=== PATIENT | female | born 1965 | race American Indian/Alaskan Native ===

== ENCOUNTER 2016-07-13 19:32 | Emergency (ER) | payer SELFPAY ==
[2016-07-13 20:14] VITALS: BP 160/87
--- NOTE | 2016-07-13 21:12 | Emergency Department Report ---
Chief Complaint: Chest Pain Stated Complaint: CHEST PAIN Time Seen by Provider: 07/13/16 21:09 - HPI History of Present Illness: patient presents with left side chest pain, dizziness that has resolved, denies n/v/d, chills, fever. Also admits to neck pain that is chronic but is now radiating down bilateral arms along with tingling. - ROS Review of Systems: All other systems unremarkable except documentation in HPI - Exam Vital Signs: Vital Signs 07/13/16 20:08 Temperature 98 F Pulse Rate 72 Respiratory 18 Rate Blood Pressure 160/87 O2 Sat by Pulse 98 Oximetry Physical Exam: Gen: Female no apparent distress noted, ambulatory. Cardiovascular: Heart sounds present S1-S2, no murmur, gallop, edema or ectopy noted, 2+ pulses upper and lower extremities Respiratory: Chest symmetry with respirations, lungs clear to auscultate upper and lower lobes, respirations even and unlabored, no rales, rhonchi, crackles noted. Psych: AxOx3, answers questions appropriately, mood full range, affect normal, normal speech and tone. MSE screening note: Focused history and physical exam performed. Due to findings the following was ordered: seen by provider, laboratory and radiology studies ordered, and to go to main ED to be seen by physician ED Medical Decision Making - Medical Decision Making seen by provider, laboratory and radiology studies ordered, and to go to main ED to be seen by physician ED Disposition for MSE Condition: Stable
[2016-07-13 21:53] LABS: Basophils % (Auto) 0.7 % (0.0-1.8); Eosinophils % (Auto) 2.6 % (0.0-4.3); Hematocrit 38.2 % (30.3-42.9); Hemoglobin 12.9 gm/dl (10.1-14.3); Mean Corpuscular HGB Conc 34 % (30-34); Mean Corpuscular Hemoglobin 32 pg (28-32); Mean Corpuscular Volume 93 fl (79-97); Platelet Count 235 K/mm3 (140-440); Red Blood Count 4.09 M/mm3 (3.65-5.03); Red Cell Distribution Width 12.9 % (13.2-15.2); White Blood Count 8.7 K/mm3 (4.5-11.0)
[2016-07-13 22:12] LABS: Creatine Kinase MB 3.6 ng/mL (0.0-4.0)
[2016-07-13 22:13] LABS: Bilirubin,Urine NEG (Negative); Blood,Urine NEG (Negative); Ketones,Urine TR mg/dL (Negative); Leukocyte Esterase,Urine NEG (Negative); Mucus,Urine 1+ /HPF; Nitrite,Urine NEG (Negative); Protein,Urine <15 mg/dL mg/dL (Negative); Urobilinogen,Urine < 2.0 mg/dL (<2.0); WBC,Urine < 1.0 /HPF (0.0-6.0)
[2016-07-13 22:13] LABS: Alanine Aminotransferase 20 units/L (7-56); Albumin 4.3 g/dL (3.9-5); Albumin/Globulin Ratio 1.8 %; Alkaline Phosphatase 69 units/L (35-129); Anion Gap 18 mmol/L; BUN/Creatinine Ratio 13.75; Bilirubin,Total < 0.2 mg/dL (0.1-1.2); Blood Urea Nitrogen 11 mg/dL (7-17); Calcium 9.2 mg/dL (8.4-10.2); Carbon Dioxide 29 mmol/L (22-30); Chloride 100.6 mmol/L (98-107); Creatine Kinase 179 units/L (30-135); Glucose 98 mg/dL (65-100); Potassium 4.1 mmol/L (3.6-5.0); Sodium 143 mmol/L (137-145); Total Protein 6.7 g/dL (6.3-8.2)
--- NOTE | 2016-07-15 14:58 | ED Elopement Review ---
ED Pt Elopement review - Results review Lab results: Laboratory Tests 07/13/16 07/13/16 07/13/16 21:34 21:36 21:36 WBC 8.7 RBC 4.09 Hgb 12.9 Hct 38.2 MCV 93 MCH 32 MCHC 34 RDW 12.9 L Plt Count 235 Lymph % (Auto) 34.6 [place] % (Auto) 8.1 H Eos % (Auto) 2.6 Baso % (Auto) 0.7 Lymph # 3.0 [place] # 0.7 Eos # 0.2 Baso # 0.1 Seg Neutrophils % 54.0 Seg Neutrophils # 4.7 Sodium 143 Potassium 4.1 Chloride 100.6 Carbon Dioxide 29 Anion Gap 18 BUN 11 Creatinine 0.8 Estimated GFR > 60 BUN/Creatinine Ratio 13.75 Glucose 98 Calcium 9.2 Total Bilirubin < 0.2 AST 18 ALT 20 Alkaline Phosphatase 69 Total Creatine Kinase 179 H CK-MB (CK-2) 3.6 CK-MB (CK-2) Rel Index 2.0 Troponin T < 0.010 Total Protein 6.7 Albumin 4.3 Albumin/Globulin Ratio 1.8 Urine Color Yellow Urine Turbidity Clear Urine pH 5.0 Ur Specific [place] 1.027 Urine Protein <15 mg/dl Urine Glucose (UA) Neg Urine Ketones Tr Urine Blood Neg Urine Nitrite Neg Urine Bilirubin Neg Urine Urobilinogen < 2.0 Ur Leukocyte Esterase Neg Urine WBC (Auto) < 1.0 Urine RBC (Auto) 2.0 U Epithel Cells (Auto) 3.0 Calcium Oxalate Crystal 1+ Urine Mucus 1+ - Call Back decision Pt Call Back Decision: No action required
== END 2016-07-13 21:40 | disposition left against medical advice (07) ==
LOC: ED 19:32
DX: R07.9 Chest pain, unspecified (principal); Z53.21 Procedure and treatment not carried out due to patient leaving prior to being seen by health care provider
CPT/HCPCS: 36415; 80053; 81001; 82550; 82553; 84484; 85025; 93005; 93010

== ENCOUNTER 2016-07-15 15:08 | Emergency (ER) | payer MEDICARE, OTHER ==
[2016-07-15 16:52] LABS: Basophils % (Auto) 0.5 % (0.0-1.8); Eosinophils % (Auto) 2.3 % (0.0-4.3); Hemoglobin 12.6 gm/dl (10.1-14.3); Mean Corpuscular HGB Conc 33 % (30-34); Mean Corpuscular Hemoglobin 31 pg (28-32); Mean Corpuscular Volume 93 fl (79-97); Platelet Count 228 K/mm3 (140-440); Red Blood Count 4.09 M/mm3 (3.65-5.03); Red Cell Distribution Width 13.4 % (13.2-15.2)
[2016-07-15 17:01] LABS: Anion Gap 16 mmol/L; BUN/Creatinine Ratio 12.85; Blood Urea Nitrogen 9 mg/dL (7-17); Calcium 9.2 mg/dL (8.4-10.2); Carbon Dioxide 28 mmol/L (22-30); Chloride 104.3 mmol/L (98-107); Glucose 97 mg/dL (65-100); Potassium 3.7 mmol/L (3.6-5.0); Sodium 145 mmol/L (137-145)
[2016-07-15] MEDS ORDERED: TESSALON PERLES PO ONE (23:56)
[2016-07-15] MEDS ORDERED: MORPHINE IV ONE (23:56)
[2016-07-15] MEDS ORDERED: ZOFRAN IV ONE (23:56)
[2016-07-15] MEDS ORDERED: MUCINEX ER PO ONE (23:56)
[2016-07-15] MEDS ORDERED: DUONEB 0.5 MG-3 MG/3 ML SOLN IH ONE (23:57)
[2016-07-16 00:07] VITALS: BP 148/79
--- NOTE | 2016-07-16 02:54 | Emergency Department Report ---
HPI - General Chief Complaint: Chest Pain Time Seen by Provider: 07/15/16 22:56 - HPI HPI: The patient is a 50-year-old female presents for evaluation of chest pain. The patient reports left-sided chest pain for the past 2 days, sharp in quality, a/ 10 in severity, exacerbated with coughing. She reports associated mild nonproductive cough of same duration, and mild dyspnea. The patient denies fever, CP, hemoptysis, unilateral leg swelling, oral contraceptive use, recent immobilization, history of DVT or PE, hx cancer. ED Past Medical Hx - Past Medical History Previous Medical History?: Yes Hx Asthma: Yes Additional medical history: bells palsy - Surgical History Past Surgical History?: No - Social History Smoking Status: Current Every Day Smoker Substance Use Type: None - Medications Home Medications: Home Medications Medication Instructions Recorded Confirmed Last Taken Type Azithromycin [Zithromax Z-SUSSY] 250 mg PO QDAY #6 tablet 07/16/16 Unknown Rx Benzonatate [Tessalon Perles] 100 mg PO Q8HR #14 capsule 07/16/16 Unknown Rx predniSONE [Deltasone] 20 mg PO QDAY #5 tab 07/16/16 Unknown Rx traMADol [Ultram 50 MG tab] 50 mg PO Q6HR PRN #10 tablet 07/16/16 Unknown Rx ED Review of Systems ROS: Stated complaint: CHEST PAIN /ESTEFANÍA/TINGLING DOWN RT ARM Other details as noted in HPI Constitutional: denies: fever ENT: denies: throat or neck pain Respiratory: reports cough, shortness of breath Cardiovascular: denies: chest pain Endocrine: denies unexplained weight loss or gain Gastrointestinal: denies: abdominal pain, nausea Genitourinary: denies: dysuria Musculoskeletal: denies: leg swelling Skin: denies: rash Neurological: denies: headache Hematological/Lymphatic: denies: easy bleeding or easy bruising Psych: denies sadness or hopelessness Physical Exam - Physical Exam Vital Signs: Vital Signs 07/15/16 07/15/16 15:58 22:02 Temperature 98.8 F 98.6 F Pulse Rate 87 87 Respiratory 18 12 Rate Blood Pressure 136/85 158/105 O2 Sat by Pulse 100 100 Oximetry Physical Exam: General: well-nourished, well-developed, no acute distress Head: Normocephalic, atraumatic Eyes: normal sclera ENT: Mucous membranes are pink and moist, bilateral nasal congestion present Neck: trachea midline, neck supple, No neck stiffness, no cervical adenopathy Respiratory: Mildly diminished breath sounds and wheezing present to apical lung spangler bilaterally Cardio: S1 and S2 present, no murmurs, rubs, gallops, capillary refill is brisk Abdomen: Normoactive bowel sounds, soft abdomen, no rigidity, no guarding or rebound tenderness Musc: No pitting edema Skin: No rash Neuro: no facial drooping, normal speech Psych: Normal affect ED Course Vital Signs 07/15/16 07/15/16 15:58 22:02 Temperature 98.8 F 98.6 F Pulse Rate 87 87 Respiratory 18 12 Rate Blood Pressure 136/85 158/105 O2 Sat by Pulse 100 100 Oximetry ED Medical Decision Making - Lab Data Result diagrams: 07/15/16 16:30 07/15/16 16:30 - Medical Decision Making The patient was seen and examined by myself. The patient is placed on a tile finisher and continuous pulse ox. On initial evaluation, the patient was found to be in no distress. EKG was negative for findings suggestive of acute cardiac infarct. Labs and imaging are obtained. The patient is given Tessalon Perles for her cough, IV morphine for her pain, and a DuoNeb breathing treatment for her dyspnea and wheezing. Chest x-ray is negative for pneumothorax , focal consolidation, pulmonary vascular congestion, pleural effusion, or other obvious acute cardiopulmonary disease process. Lab results were non- concerning including levels of troponin, WBC, hemoglobin, hematocrit, electrolytes, renal function. The patient was reevaluated and reported that their symptoms were markedly improved. The patient is given a prescription for prednisone and pain medicine. As the patient has a SARAY risk score less than 2 , and a well's score less than 2, the patient is at low risk of ACS or pulmonary emboli etiology of their symptoms. The patient is stable for discharge with outpatient follow-up. The patient is given follow-up and return instructions. The patient expressed understanding and agreed with the plan. The patient is discharged in stable condition. Critical care attestation.: If time is entered above; I have spent that time in minutes in the direct care of this critically ill patient, excluding procedure time. ED Disposition Clinical Impression: Upper respiratory infection, acute, Acute chest pain, Asthma with acute exacerbation in adult Disposition: DISCHARGED TO HOME OR SELFCARE Is pt being admited?: No Does the pt Need Aspirin: No Condition: Stable Instructions: Chest Pain (ED), Asthma (ED) Prescriptions: Azithromycin [Zithromax Z-SUSSY] 250 mg PO QDAY #6 tablet Benzonatate [Tessalon Perles] 100 mg PO Q8HR #14 capsule predniSONE [Deltasone] 20 mg PO QDAY #5 tab traMADol [Ultram 50 MG tab] 50 mg PO Q6HR PRN #10 tablet PRN Reason: Pain Referrals: PRIMARY CARE, [Primary Care Provider] - 3-5 Days Time of Disposition: 23:57
--- NOTE | 2016-07-16 07:51 | XRay Report ---
CHEST ONE VIEW INDICATION: Chest pain. COMPARISON: None similar at this institution. FINDINGS: Portable, single, frontal chest radiograph demonstrates normal cardiomediastinal silhouette. Slight aortic knob calcifications. Clear, expanded lungs. Unremarkable bones. Extrinsic EKG leads. CONCLUSION: No acute disease in the chest. Thank you for the opportunity to participate in this patient's care.
== END 2016-07-16 01:05 | disposition home or self-care (01) ==
LOC: ED 15:08
DX: J45.901 Unspecified asthma with (acute) exacerbation (principal); J06.9 Acute upper respiratory infection, unspecified; F17.200 Nicotine dependence, unspecified, uncomplicated; G51.0 Bell's palsy
CPT/HCPCS: 36415; 71010; 80048; 84484; 85025; 93005; 93010; 96374; 96375; 99285; J2270; J2405